=== PATIENT | female | born 1965 | race Caucasian/White ===

== ENCOUNTER 2018-05-25 12:27 | Emergency (ER) | payer OTHER ==
[2018-05-25 12:33] VITALS: BMI 21.9
[2018-05-25 12:36] VITALS: BP 121/62; PULSE 62; RESP 18; TEMP 98; O2SAT 96
--- NOTE | 2018-05-25 13:11 | C.PDOC ---
History Of Present Illness 52 yo female come in for evaluation fo Right hand, Right thumb pain gradually developed for past 2 weeks. Pt is localized and worse with Right thumb movement. Denies known trauma or injury, fever, chills, deformity, sensory or vascular deficits to Right hand. Time Seen by Provider: 05/25/18 12:48 Chief Complaint (Nursing): Finger,Hand,&Wrist History Per: Patient Past Medical History Reviewed: Historical Data, Nursing Documentation, Vital Signs Vital Signs: Last Vital Signs Temp 98.0 F 05/25/18 12:33 Pulse 62 05/25/18 12:33 Resp 18 05/25/18 12:33 BP 121/62 05/25/18 12:33 Pulse Ox 96 05/25/18 12:33 - Medical History PMH: Anemia Surgical History: Family History: States: Unknown Family Hx - Social History Hx Tobacco Use: No Hx Alcohol Use: No Hx Substance Use: No - Immunization History Hx Tetanus Toxoid Vaccination: No Hx Influenza Vaccination: No Hx Pneumococcal Vaccination: No Review Of Systems Except As Marked, All Systems Reviewed And Found Negative. Constitutional: Negative for: Fever, Chills Musculoskeletal: Positive for: Hand Pain Skin: Negative for: Rash, Lesions Neurological: Negative for: Weakness, Numbness Physical Exam - Physical Exam Appears: Well, Non-toxic, No Acute Distress Skin: Normal Color, Warm, No Rash, No Ecchymosis Head: Normacephalic Extremity: Normal ROM (FAROM of Right wrist and hand), Tenderness (radial aspect Right wrist extend to dorsal aspect hand and thenar area. ), Capillary Refill (less than 2sec to Right hand), No Deformity, No Swelling Neurological/Psych: Oriented x3, Normal Speech, Normal Motor, Normal Sensation, Normal Reflexes ED Course And Treatment O2 Sat by Pulse Oximetry: 96 - Other Rad Right wrist X-Ray: Interpreted by Me, Viewed By Me Interpretation: (-) acute fx or dislocation Progress Note: On re-eval, pt is afebrile, hemodynamicaly stable. non-toxic. Right hand: tenderness obver radial aspect Right wrist and thumb area. FAROM, no neurovascular deficits. Imaging (-) acute findings. Pt has clinical findings c/w Right radial neuropathy/ wrist sprain. Volar splint applied. Pt advised and ref. to f/u with hand specialsit for further eval. Disposition Counseled Patient/Family Regarding: Studies Performed, Diagnosis, Need For Followup, Rx Given - Disposition Referrals: James Rain MD [Medical Doctor] - James Rain MD [Staff Provider] - Disposition: HOME/ ROUTINE Disposition Time: 13:29 Condition: STABLE Additional Instructions: Splint for 1-2 weeks for Right wrist stability rest right hand for 1 week take medication as prescribed Follow up wit Hand specialist in 2-3 days for re-evaluation. return if any worsening or new changes. Prescriptions: Prednisone [Deltasone] 40 mg PO DAILY #6 tablet Instructions: Hand Pain Forms: [facility] (Lao), Work Excuse - Clinical Impression Clinical Impression: Arthralgia of hand
--- NOTE | 2018-05-25 13:37 | RAD ---
Date of service: 05/25/2018 PROCEDURE: Right Wrist Radiographs. HISTORY: pain COMPARISON: None. TECHNIQUE: 4 views obtained. FINDINGS: BONES: Bone alignment and mineralization are normal. There is no acute displaced fracture or bone destruction. JOINTS: Normal. No dislocation. SOFT TISSUES: Normal. OTHER FINDINGS: None. IMPRESSION: No acute displaced fracture or dislocation.
== END 2018-05-25 13:47 | disposition home or self-care (01) ==
LOC: C.ER 12:27
DX: G62.9 Polyneuropathy, unspecified (principal); S63.501A Unspecified sprain of right wrist, initial encounter; X58.XXXA Exposure to other specified factors, initial encounter; M25.541 Pain in joints of right hand

== ENCOUNTER 2018-06-15 12:48 | Emergency (ER) | payer OTHER | END 2018-06-15 15:00 | disposition home or self-care (01) | LOC: C.ER 12:48 ==